=== PATIENT | female | born 1965 | race Two or more races ===

== ENCOUNTER 2018-08-14 12:54 | Outpatient (CLI) | payer OTHER | END 2018-08-14 13:01 | disposition home or self-care (01) | LOC: RAD 501 12:54 | DX: M54.5 Low back pain (principal) ==

== ENCOUNTER 2020-08-28 08:03 | Outpatient (CLI) | payer OTHER | END 2020-08-28 16:56 | disposition home or self-care (01) | LOC: RAD 08:03 | PROVIDERS: ATTEND Physical Medicine & Rehabilitation | DX: S80.02XA Contusion of left knee, initial encounter (principal) ==